=== PATIENT | female | born 1940 ===

== ENCOUNTER → 2022-08-14 | Outpatient (CLI) | payer MEDICARE ==
--- NOTE | 2022-08-14 16:30 | Diagnostic Imaging Report ---
PROCEDURE: MR imaging of the brain without contrast. TECHNIQUE: Multiplanar, multisequence MR imaging of the brain was performed without contrast. INDICATION: Dizziness. No prior studies are available for comparison. Ventricles and sulci are consistent with the patient's age. There is extensive periventricular and subcortical white matter signal foci consistent with chronic microvascular ischemia. No diffusion restriction is identified to suggest acute ischemia. The normal expected flow-voids within the carotid siphons are seen. There is no midline shift. No acute intra-axial or extra-axial hemorrhage is detected. Corpus callosum is unremarkable. The sella and parasellar structures are unremarkable. Note is made of moderate fluid and mucosal thickening in the right maxillary sinus. IMPRESSION: 1. Extensive periventricular and subcortical white matter changes consistent with chronic microvascular ischemia. No acute intracranial process is detected. 2. Right maxillary sinusitis. Dictated by: Dictated on workstation # [id number]
== END ==
LOC: RAD 14:45
PROVIDERS: ATTEND Family Medicine
DX: J32.0 Chronic maxillary sinusitis (principal); R42 Dizziness and giddiness
CPT/HCPCS: 70551